=== PATIENT | male | born 1975 | race Caucasian/White ===

== ENCOUNTER 2018-02-28 21:52 | Emergency (ER) | payer MEDICAID ==
[~2018-02-28] VITALS: Ht 182.9 cm; Wt 87.0 kg
[~2018-02-28 21:52] MED LIST: FLO0.4C PO; HYDR-565 PO; HYDR-569 PO; IBUP-1051 PO; IBUP-1986 PO; NO HOME MEDS; ONDA4TAB6 PO
[2018-02-28 21:57] VITALS: BP 134/99
[2018-02-28] MEDS ORDERED: CLIN150C2 PO (23:18)
[2018-02-28] MEDS ORDERED: DEC4T PO (23:18)
== END 2018-02-28 23:28 | disposition home or self-care (01) ==
LOC: ER 21:53
DX: K02.9 Dental caries, unspecified (principal); K04.7 Periapical abscess without sinus; Z87.442 Personal history of urinary calculi; Z79.899 Other long term (current) drug therapy
CPT/HCPCS: 99283